=== PATIENT | male | born 1970 | race Caucasian/White ===

== ENCOUNTER 2022-04-27 07:32 | Observation (INO) | payer SELFPAY, OTHER ==
[2022-04-19 08:18] LABS: Absolute Lymphocyte Count 1.58 X10^3/uL (0.83-4.51); Basophil# 0.06 X10^3/uL; Basophil% 0.9 % (0-1); Eosinophil# 0.09 X10^3/uL; Eosinophils% 1.4 % (0-5); Hematocrit 43.7 % (40-54); Lymphocyte # 1.58 X10^3/ul (0.83-4.51); Lymphocyte % 24.9 % (19-41); Mean Corp Hgb Conc 34.3 g/dL (32-36); Mean Corpuscular Hgb 28.4 pg (27.0-32.0); Mean Corpuscular Volume 82.6 fL (80-94); Mean Platelet Vol. 10.2 fl (6.2-12.0); Monocyte# 0.54 X10^3/uL; Monocyte% 8.5 % (0-10); NRBC Flagged by Analyzer 0 % (0-5); Neutrophil # 4.04 X10^3/uL (2.7-7.7); Neutrophil % 63.7 % (47-70); Platelet Count 290 K/mm3 (150-450); RBC Distribution Width CV 13.8 % (11.6-14.6); RBC Distribution Width SD 41.4 fl (35.1-43.9); Red Blood Count 5.29 M/mm3 (4.6-6.2); White Blood Count 6.4 K/mm3 (4.4-11.0)
[2022-04-19 08:38] LABS: Anion Gap 5 (5-15); BUN 17 mg/dL (7-18); BUN/Creat Ratio 18.3 RATIO (10-20); Calcium,Total 9.3 mg/dL (8.5-10.1); Chloride 111 mmol/L (98-107); Creatinine, Serum 0.93 mg/dL (0.70-1.30); EST Glomerular Filtration Rate 90 mL/min (>60); Est Glom Filt Rate - Afr Amer 109 mL/min (>60); Glucose 87 mg/dL (74-106); Potassium 4.4 mmol/L (3.5-5.1); Sodium Level 141 mmol/L (136-145)
[2022-04-19 09:23] LABS: HIV - WCH Non-Reactive (Nonreactive); Hepatitis B Surface Antibody Non-Reactive; Hepatitis C Antibody Non-Reactive (Nonreactive)
--- NOTE | 2022-04-19 09:38 | EKG12_ITS ---
Test Reason : PREOP Blood Pressure : / mmHG Vent. Rate : 063 BPM Atrial Rate : 063 BPM P-R Int : 142 ms QRS Dur : 116 ms QT Int : 386 ms P-R-T Axes : 045 -02 025 degrees QTc Int : 395 ms Normal sinus rhythm Normal ECG Confirmed by ANGELITA ELAM, MARIUM ([id number]), mapping editor FABRIZIO SHARMA ([id number]) on 04/19/2022 9:38:51 AM Referred By: Bon Carlson Confirmed By:MARIUM GOLDSTEIN MD
[2022-04-20 10:29] LABS: Hepatitis A AB, Total Negative (Negative)
[2022-04-27] VITALS (17 sets, daily range): BP systolic 95–126; BP diastolic 52–84; PULSE 60–85; RESP 14–18; TEMP 36.3–37.1; O2SAT 94–100; BMI 28.6
[2022-04-27] MEDS: Acetaminophen 500 MG Tablet 1000 MG PO (06:33)
[2022-04-27] MEDS: Lactated Ringers 1,000 ML 15 ML IV ×3 (06:33→11:50)
[2022-04-27] MEDS: Magnesium 1 GM over 15 mins IV (06:33)
[2022-04-27 06:50] LABS: Bedside Glucose 95 mg/dL (74-106)
--- NOTE | 2022-04-27 07:13 | HP_ITS ---
Intake Intake Visit Reasons: lumbar spine Allergies acetaminophen [From Vicodin] Adverse Reaction (Verified 04/19/22 08:27) Nausea hydrocodone [From Vicodin] Adverse Reaction (Verified 04/19/22 08:27) Nausea PFSH Medical History Arthritis Back pain Former smoker History of pain when walking Loss of hearing Wears glasses Surgical History History of appendectomy Hx of rotator cuff surgery Social History Smoking Status: Former smoker alcohol intake: never HPI lumbar spine Details: Parts of this documentation were recorded by a scribe, this documentation accurately reflects the service provided and the decisions made by me, Dr. Bon Carlson, DO 04/19/22825. KIRBY JENKINS is a 52 year old M here today for pre-op visit. Parminder is here in the company of his Dorie for his preop visit. We discussed the surgery at length what to expect etc. His main complaint of course is left- sided pain that goes into his buttocks down his thigh down his leg more so than middle of the back pain. MRI of course demonstrated severe stenosis at the L4-5 level. Discussed the surgery we discussed his recovery when he might be able to return to work etc. I answered all of his questions and those of his . I will see him again at surgery next Tuesday. Coding Level of Care Code Off vis,est,level 2 Diagnoses Spinal stenosis at L4-L5 level M48.061 Time Spent (min) 25 Assessment and Plan Assessment and Plan (1) Spinal stenosis at L4-L5 level: Status: Acute
[2022-04-27] MEDS: Cefazolin 2 GM in 0.9% Normal Saline 100 ML IV (07:31)
--- NOTE | 2022-04-27 08:45 | RAD_ITS ---
STUDY: X-RAY - LUMBAR SPINE REASON FOR EXAM: Male, 52 years old. LAMINECTOMY, DECOMPRESSION L4-5 TECHNIQUE: 1 view(s) of the lumbar spine were obtained. COMPARISON: None FINDINGS: The localization instrument is seen posterior to the L5-S1 disc space level. RAD/Spine 1 View Any Level IMPRESSION: The localization instrument is seen posterior to the L5-S1 disc space level. Electronically Signed: Kyrie Kennedy MD at 8:59 EDT ,
[2022-04-27] MEDS: THROMBIN (RECOMBINANT) 20,000 UNIT VIAL 20000 UNIT TOPICAL (09:00)
--- NOTE | 2022-04-27 10:52 | OP.PCM_ITS ---
Report of Operation Description of Surgical Findings:: Preoperative diagnosis: Spinal stenosis L4-5 Postoperative diagnosis: The same Procedure: Lumbar laminectomy decompression L4-5 CPT code 29714 Surgeon: Dr. Carlson dental chairside assistant: Ruthann Gage NP Anesthesia: General endotracheal administered by [facility] EBL: 30 cc Drains: Medium Hemovac Complications: None Procedure: Patient was taken to the OR where he was placed under general endotracheal anesthesia while still on his gurney. A Johnson catheter was inserted. Neuro monitoring placed her leads on the patient. The patient was then moved onto the Thom frame in a prone position. Care was taken to protect the bony prominences his genitalia the brachial plexus bilaterally the ulnar nerves of both elbows the cervical spine and facial features. The back was then prepped and draped standard fashion. Made a longitudinal incision centered over L4 5 subcutaneous tissues were incised the length of skin incision. I opened the lumbar fascia to the left of the spinous processes elevated the paravertebral muscles off of the spinous process an intraoperative x-ray was taken with a marker in place that demonstrated we were at L5 1 so we simply moved up 1 marked extended incision about half an inch cephalad. Again the subcutaneous tissues were incised length of skin incision the fascia opened on the left and on the paravertebrals we will elevated off of the lamina of L4 and the top of the lamina of L5. Then opened the right side and did the same exact thing elevated paravertebral muscles off the lamina for the lamina 5 using cautery. The super slide retractors were then put in place. Using double- action bone rongeurs I removed the spinous process of L4 and the very top of L5. Then thinned the lamina down with a double-action rongeurs on each side. I then used a curette to elevate the ligamentum flavum off the underside of the lamina and the laminectomy was carried out with 45 degree Kerrison rongeurs. I had to use both 3 mm and 4 mm rongeurs. Then released the ligamentum flavum off the top of the lamina of L5. I split it in the middle and began removal of the ligamentum flavum. I was on the left side of the patient so I removed the ligamentum flavum on the right side first using 45 degree Kerrison rongeurs and at times using cottonoids to protect the dura until I removed the entire ligamentum flavum and open the lateral recess. I then went to the opposite side of the table that is moved to the patient's right side and elevated the ligamentum flavum and removed with 45 degree Kerrison rongeurs. Again I used a lot of cottonoid protection to protect the dura. I removed it and also opened of the lateral recess with the 45 degree Kerrison rongeurs. As it was well decompressed I moved back to the left side of the patient. Then retracted the nerve root and dura medialward exposing the L4-5 disc. Note that it was a bit protruded however once the lateral recess was opened pressure was completely off the L5 nerve root. I also checked both foramina with a hockey-stick and were found to be quite open. Thorough irrigation was carried out in the course of the case every 10 to 15 minutes. Gelfoam was placed over the dura to control bleeding. An amniotic membrane was then placed directly over the open dura to prevent adhesions in the future. Gelfoam was placed over the top of that. A medium Hemovac drain was then inserted. Close lumbar fascia using [id number] suture with #1 Vicryl. This was followed by closure of the subcutaneous tissues with 2-0 Vicryl in interrupted fashion. The skin was approximated using skin clips. Sterile dressings were then applied and the Hemovac was protected. The patient was then recovered in the OR and moved to his hospital bed and taken to recovery in satisfactory condition. There is the end of operative summary on Diego Cintron. This is Dr. Carlson dictating.
[2022-04-27 12:05] LABS: Bedside Glucose 104 mg/dL (74-106)
[2022-04-27] MEDS: Lactated Ringers 1,000 ML 100 ML IV ×2 (15:17→21:48)
[2022-04-27] MEDS: oxyCODONE 5 MG Tablet PO ×2 (15:22→21:56)
[2022-04-27] MEDS: Ensure Surgery 237 ML LIQUID PO ×2 (15:23→18:47)
[2022-04-27] MEDS: Cefazolin 1 GM/50 ML BAG IV ×2 (15:32→23:38)
--- NOTE | 2022-04-27 17:50 | PCM.HOSP.N ---
Hospitalist Note Consult requested by Dr. Carlson for postoperative medical management. Went to go see the patient to introduce myself and to get a history and physical from him. Patient saw that it was in his room and was on the phone during the encounter. I remained in the room for several minutes at the patient made no effort to get off of the phone. I left the room without to being with the patient nor doing any physical exam as patient clearly was not interested any encounter. I reviewed the patient's vital signs and those are stable. Patient takes no home medications. I do not see any past medical history other than his back issues. Given that the patient is not interested in encounter, at least for tonight, but also with stable vital signs and notes noted past medical history and no home medications. I am signing off on this case. If medical issues do arise if the patient is interested in actually speaking with the hospital service then please do not hesitate to reconsult.
[2022-04-28 00:29] VITALS: BP 105/60; PULSE 70
[2022-04-28 03:40] VITALS: BP 102/62; PULSE 69; RESP 18; TEMP 36.8; O2SAT 98
[2022-04-28] MEDS: Cefazolin 1 GM/50 ML BAG IV (06:37)
--- NOTE | 2022-04-28 08:47 | CASEMGMT ---
Social Work Pt does not have LW or HCPOA. Declined information on these documents. RASTA Stephenson
[2022-04-28 09:25] VITALS: BP 95/65; PULSE 66; RESP 18; TEMP 36.9; O2SAT 100
[2022-04-28 09:35] VITALS: O2SAT 96
--- NOTE | 2022-04-28 10:30 | CASEMGMT ---
RN CM KICK PLATE INSTALLER CM to room to meet with patient for initial transition planning/care coordination assessment. RN LEALND introduced self and role at [facility]. Pt voices understanding and consents to assessment at this time. Pt resting in bed in no distress at this time. , Dorie, in room w/pt. Pt is A/O at this time and answers all questions appropriately. Care providers, pharmacy, and demographics verified/updated at this time. PCP: Dr Gilmore Specialists:Dr Carlson-yoko Preferred Pharmacy:[facility] Retail Insurance: [employer] Prescription Benefit: none Living Will/HPOA: Pt does not currently have LW/HCPOA and declines info at this time. Pt made aware that he can contact [facility] as an out-pt and make appt in the future if he decides he would like to talk with someone about this or would like to utilize [facility] social work for advanced directive completion. Given Solution Consultant Rac card with information and contact number. Pt expresses understanding. LNOK: , Dorie Living Arrangements: Lives w/ in 2-story home w/2 steps to enter. [employer]. 5 children living @ home w/them. Independent. Works full-time Transportation: Hire drivers DME: Has a walking stick. Does have crutches and aunt has a walker he could borrow, if needed. HHC/SNF: No hx of either. Pt wishes to return home and states has no concerns with going home at time of discharge. CM to follow for any discharge planning/needs. Pt voices no concerns/needs at this time. PLAN: Home Lauren REN RN, CM
[2022-04-28] MEDS: Ensure Surgery 237 ML LIQUID PO (12:20)
--- NOTE | 2022-04-28 12:48 | DCINST_ITS ---
Discharge Instructions Follow Up Care Test Results: Test results from this visit will be discussed in further detail at your follow- up appointment, if applicable. Discharge Plan Admission Admit Date/Time: 04/27/22 07:32 Primary Reason for Your Visit: lumbar surgery Attending Provider: Bon Carlson Primary Care Provider: Jameson Gilmore Consulting Providers: Gagandeep Raymond Discharge Orders/Prescriptions Prescriptions: No Action NK Referrals / Follow Up: Jameson Gilmore MD [Primary Care Provider] - Disposition Disposition (needs filled in before D/C Order can be placed): Home, Self Care
--- NOTE | 2022-04-28 12:50 | PCM.DC.SUM ---
Providers Date of Admission: 04/27/22 Primary Care Physician: Dr. Jameson Gilmore MD Attending Physician: This is discharge summary on patient Diego Cintron. This patient was admitted yesterday 27 April. He underwent lumbar laminectomy decompression at the L4-5 level. He has tolerated it well. Today he reports complete relief of his left leg pain. The dressing was changed incision is dry and healing well. The drain was removed. I gave him his directions regarding his activities. The dressing is to be removed on on Tuesday and on Tuesday he may start to start taking showers. He is to ambulate further and further the goal being that he could walk a mile a month from now. He made regular diet. He is given oxycodone 5 mg for pain for home. He already has an appointment to see me in the office. This is the end of discharge summary on Diego Cintron. This is Dr. Carlson dictating. Consultations 04/27/22 13:21 Consult: Hospitalist Routine Consulting Provider: Gagandeep Raymond Reason for Consult: Medical Management EMERGENT Consult: No MD Notified: Yes Date Notified: 04/27/22 Time Notified: 15:36 Method of Notification: Text Reason For Visit: LAMINECTOMY LUMBAR DECOMPRESSION L4-5 Medications at Discharge Home Medications NK 04/27/22 Weight / BMI Weight Weight: 194 lb 0.108 oz Body Mass Index (BMI) 28.6 ABG / Lab / Microbiology Data Result Diagrams: 04/19/22 07:57 04/19/22 07:57 Microbiology: Microbiology 04/19/22 07:57 Swab (Method) Nasal Screen MRSA/MSSA - Final Radiography Diagnostic Testing: Radiology Impression Spine X-Ray 04/27/22 08:45 IMPRESSION: The localization instrument is seen posterior to the L5-S1 disc space level. Electronically Signed: Kyrie Kennedy MD at 8:59 EDT , Meaningful Use Info Meaningful Use Diagnoses (Choose all that apply): None applicable Discharge Plan Admission Admit Date/Time: 04/27/22 07:32 Primary Reason for Your Visit: lumbar surgery Attending Provider: Bon Carlson Primary Care Provider: Jameson Gilmore Consulting Providers: Gagandeep Raymond Discharge Orders/Prescriptions Prescriptions: No Action NK Referrals / Follow Up: Jameson Gilmore MD [Primary Care Provider] - Disposition Disposition (needs filled in before D/C Order can be placed): Home, Self Care
[2022-04-28 13:14] VITALS: BP 111/71; PULSE 65; RESP 18; TEMP 37.3; O2SAT 95
[2022-04-28] MEDS: oxyCODONE 5 MG Tablet PO (13:22)
== END 2022-04-28 14:37 | disposition home or self-care (01) ==
LOC: SDC 11:34 → MS3 11:34
PROVIDERS: Anesthesiology; Admitting Provider Orthopaedic Surgery; PCP Family Medicine; Referring Provider Orthopaedic Surgery; Visit Provider Orthopaedic Surgery
PROC: (CPT 63030; principal; 2022-04-27 07:00)
DX: M48.061 Spinal stenosis, lumbar region without neurogenic claudication (principal); Z87.891 Personal history of nicotine dependence
CPT/HCPCS: 63047; 00630; 36415; 72020; 80048; 82962; 83735; 85025; 86703; 86706; 86708; 86803; 87077; 87081; 93005; 96361; 96365; 96366; 97161; 97530; 99218; 99251; J7120; G0378; G0463; J2405; J3475